=== PATIENT | male | born 1985 | race African-American/Black ===

== ENCOUNTER 2019-08-13 12:58 | Emergency (ER) | payer OTHER ==
[~2019-08-13] VITALS: Ht 165.1 cm; Wt 77.1 kg
[2019-08-13 13:09] VITALS: BP 124/79; TEMP 99.7
== END 2019-08-13 14:51 | disposition home or self-care (01) ==
LOC: ED 12:58
DX: S42.001K Fracture of unspecified part of right clavicle, subsequent encounter for fracture with nonunion (principal)
CPT/HCPCS: 99283

== ENCOUNTER 2019-10-05 10:58 | Outpatient (CLI) | payer OTHER | END 2019-10-05 19:11 | disposition home or self-care (01) | LOC: CT 10:58 | DX: M25.511 Pain in right shoulder (principal); S40.011A Contusion of right shoulder, initial encounter; S42.021D Displaced fracture of shaft of right clavicle, subsequent encounter for fracture with routine healing; S43.431A Superior glenoid labrum lesion of right shoulder, initial encounter ==